=== PATIENT | male | born 1975 | race African-American/Black ===

== ENCOUNTER 2016-11-30 16:02 | Emergency (ER) | payer OTHER ==
--- NOTE | ~2016-11-30 | CR72 ---
[facility]. [facility] A Service of [facility] & [facility] RADIOLOGY TEXT RESULTS PATIENT: ABRAHAM GARCIA LOCATION: SED : 75 UNIT #: [id number] AGE: [address]: Wilbert Lei MD SEX: M ORDER DR: [id number] [place] [id number] E MR#: [id number] Acc #: [id number] NAME: ABRAHAM GARCIA : 1975 SEX: M STUDY DATE/TIME: 11/30/2016 16:01 UNIT: SED ROOM: STUDY DESCRIPTION: CR Chest Single View Portable Attending Physician: Wilbert Lei M.D. Ordering Physician: Wilbert Lei M.D. Primary Care Physician: Eino Browning M.D. MEDICAL IMAGING REPORT This report is preliminary unless electronic signature is present. EXAM AP portable chest DATE OF EXAMINATION 11/30/2016 HISTORY Chest pain for 1 day. COMPARISON AP portable chest 10/23/2012. FINDINGS Heart size is within normal limits. Pulmonary vascular distribution is normal. No pleural effusion or pneumothorax. No acute airspace disease is seen. IMPRESSION No acute cardiopulmonary findings. Dictated by... Starla Loyd M.D. THIS IS AN ELECTRONICALLY VERIFIED REPORT Starla Loyd M.D. at 12/01/2016 7:11 AM NEVILLE/ar TD: 11/30/2016 17:56 JOB #: [id number] MEDICAL IMAGING REPORT Page 1 of 1
--- NOTE | ~2016-11-30 | EKG ---
PATIENT: ABRAHAM GARCIA UNIT #: [id number] Ventricular Rate: 64 BPM Atrial Rate: 64 BPM P-R Interval: 170 ms QRS Duration: 82 ms Q-T Interval: 376 ms QTC Calculation(Bezet): 387 ms P [place]: 55 degrees Calculated R [place]: 21 degrees Calculated T [place]: 14 degrees Diagnosis Line: Normal sinus rhythm Diagnosis Line: Normal ECG Diagnosis Line: When compared with ECG of 23-OCT-2012 19:56, Diagnosis Line: Nonspecific T wave abnormality no longer evident Diagnosis Line: in Anterolateral leads Diagnosis Line: Confirmed by MONSE JENKINS MD ([id number]) on 12/10/2016 Diagnosis Line: 11:50:10 AM INTERPRETING MD: GREGORY BELLAMY
[~2016-11-30 16:02] MED LIST: ASPIRIN81 MG PO; CIPRO PO; NO MEDICATIONS; NORFLEX100 MG PO; PHENERGAN PO; TORADOL10 MG PO; VICODIN 5/1 TAB 5/50 PO
[2016-11-30 16:53] LABS: BASOPHIL% 0.5 % (0-2.5); EOSINOPHIL# 0.2 X10e3 (0-0.7); MEAN CORPUSCULAR HGB CONC 32.5 g/dL (30-36); MONOCYTE# 0.6 X10e3 (0-1.0); NEUTROPHIL# 2.6 X10e3 (1.5-7.1); RED CELL DISTRIBUTION WIDTH 13.6 % (11.0-15.5)
[2016-11-30 17:05] LABS: EOSINOPHIL% 2.9 % (0.0-7.0); HEMATOCRIT 42.3 % (38.0-50.0); HEMOGLOBIN 13.7 gm/dL (13.0-16.0); LYMPHOCYTE# 2.3 X10e3 (1.0-3.5); LYMPHOCYTE% 39.8 % (17.0-45.0); MEAN CELL VOLUME 89.8 FL (83-96); MEAN CORPUSCULAR HEMOGLOBIN 29.2 PG (28-34); MEAN PLATELET VOLUME 7.7 FL (6.5-11.5); MONOCYTE% 10.3 % (3.0-12.0); NEUTROPHIL% 46.5 % (40-75); PLATELET COUNT 299 X10e3 (140-420); RED BLOOD COUNT 4.71 X10e (3.90-5.60); WHITE BLOOD COUNT 5.7 X10e3 (4.0-10.5)
[2016-11-30 17:06] LABS: DIFF IND NO
[2016-11-30 17:09] LABS: POC - CKMB <1.0 ng/mL (0.0-7.9); POC - TROPONIN <0.05 ng/mL (<=0.05)
[2016-11-30 17:11] LABS: ALBUMIN SERUM 3.9 g/dL (3.5-5.0); BILIRUBIN, DIRECT 0.1 mg/dL (0.0-0.2); BILIRUBIN,INDIRECT 0.3 mg/dL (0.0-0.9); BILIRUBIN,TOTAL 0.4 mg/dL (0.2-2.0); BUN/CREATININE RATIO 6.92; CALCIUM SERUM 8.6 mg/dL (8.4-10.2); CREATININE SERUM 1.3 mg/dL (0.6-1.4); GLOM FILT RATE Estimated 78.6 mL/min (>60); POTASSIUM 3.7 mmol/L (3.5-5.1); PROTEIN TOTAL SERUM 7.5 g/dL (6.0-8.3)
== END 2016-11-30 17:25 | disposition home or self-care (01) ==
LOC: SED 16:02
PROVIDERS: Emergency Medicine
DX: R07.89 Other chest pain (principal)
CPT/HCPCS: 36415; 71010; 80048; 80076; 82553; 84484; 85025; 93005; 99284

== ENCOUNTER 2017-04-12 14:53 | Emergency (ER) | payer OTHER ==
[~2017-04-12] VITALS: Ht 182.9 cm; Wt 104.3 kg
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
[2017-04-12 18:13] LABS: URINE SOURCE CLEAN CATCH
[2017-04-12 18:20] LABS: URINE APPEARANCE CLEAR; URINE BILIRUBIN NEG (NEG); URINE BLOOD TRACE-INTACT (NEG); URINE COLOR YELLOW; URINE GLUCOSE NEG (NORM); URINE KETONE NEG (NEG); URINE LEUKOCYTE ESTERASE TRACE (NEG); URINE NITRATE NEG (NEG); URINE PH 6.5 (5-8); URINE PROTEIN NEG (NEG); URINE UROBILINOGEN 0.2 MG/DL (NORM)
[2017-04-12 18:21] LABS: MICRO INDICATED? YES
[2017-04-12 18:30] LABS: CULTURE INDICATED? YES; URINE BACTERIA 1+ (NEG); URINE SQUAMOUS EPITHELIAL CELL OCCAS /[HPF]
== END 2017-04-12 18:31 | disposition home or self-care (01) ==
LOC: SED 14:53
PROVIDERS: Physician Assistant
DX: M54.6 Pain in thoracic spine (principal); M54.2 Cervicalgia; E07.9 Disorder of thyroid, unspecified
CPT/HCPCS: 72072; 81003; 87086; 99283

== ENCOUNTER → 2017-05-03 | Outpatient (CLI) | payer OTHER ==
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
== END | disposition home or self-care (01) ==
LOC: SMRI 09:35
DX: M54.5 Low back pain (principal); M47.896 Other spondylosis, lumbar region
CPT/HCPCS: 72148